=== PATIENT | male | born 1945 | race Caucasian/White ===

== ENCOUNTER 2023-02-06 22:48 | Observation (INO) | payer OTHER, SELFPAY ==
[2023-02-06 22:56] VITALS: BP 161/95; PULSE 84; RESP 16; TEMP 36.7; O2SAT 99; BMI 29.0
--- NOTE | 2023-02-06 23:08 | ED_ITS ---
HPI - General Adult General Chief complaint: Eye Problems Stated complaint: double vision Time Seen by Provider: 02/06/23 23:08 History of Present Illness HPI narrative: CC: Double Vision pt. with double vision around 1600 today. went to eye doctor and was advised to come to ER right away. pt. came 6 hours later cause double vision still persists. denies pain. does wear glasses normally. 77-year-old man presenting to the emergency department with concern of a vertical double vision. We were contacted by [facility] in this emergency department around 5:00 p.m. anticipating his arrival. Apparently went home to rest to see if he might feel better. Presents here at approximately 11:00 p.m. had abrupt onset of double vision sometime after period of yd work around 3:00 p.m. today; 8 hours ago. Does not have a headache. No sensory deficits otherwise. No weaknesses. No discoordination. No loss of vision actually. Diplopia clearly resolves with closure of 1 eye or the other. Was evaluated at Eye Clinic as noted above and determined not to have an eye issue and recommended for emergent evaluation at the emergency department. Over the last couple of months has noted some oddity in the periphery of his vision at times. There has been no trauma. No chest pain or shortness of breath. No palpitations or rapid heartbeats. He arrives concerned that maybe he would potentially have a stroke. Is not taking medications nor have any diagnoses. Normally does were glasses. Related Data Home Medications Medication Instructions Recorded Confirmed No Known Home Medications 02/06/23 02/06/23 Allergies Allergy/AdvReac Type Severity Reaction Status Date / Time No Known Drug Allergies Allergy Verified 02/06/23 22:59 Review of Systems Status of ROS: Reports: 6 or more systems reviewed and unremarkable except as noted in History and below [facility] Medical History (Updated 02/07/23 @ 01:20 by Og Randall MD) No significant past medical history Surgical History (Updated 02/07/23 @ 00:11 by Sascha Morris RN) No significant past surgical history Social History Smoking Status: Never smoker Second hand tobacco smoke exposure: No How often do you have a drink containing alcohol: never How often do you have six or more drinks on one occasion: Never AUDIT-C Alcohol total score: 0 Non-prescribed substance use: denies use Exam Narrative: Exam Narrative: Very pleasant. NAD. GCS of 15 Jhonatan complected. Skin is warm and dry. Speaking fluidly. Understanding without difficulty. Is well-perfused peripherally. Moving all extremities without difficulty, fluidly and with good strength. As noted subjectively without sensory deficits. Cranial nerves 2-12 otherwise look to be intact. Extraocular movements are full and fluid. I do not appreciate dysconjugate gaze. Heart is in a regular rate and rhythm. Lungs are clear. NIH stroke scale of 0. Const: Vital Signs, click to edit/add: Vital Signs - 24 hr 02/06/23 22:56 02/06/23 23:31 Temperature 98.1 F Pulse Rate [Right Pulse Oximeter] 84 Respiratory Rate 16 Blood Pressure [Ri ght Upper Arm] 161/95 H Pulse Oximetry 99 98 Oxygen Delivery Me thod Room Air Documenting provider has reviewed patient's vital signs: yes Course Vital Signs Vital signs: Initial Vital Signs Temperature 98.1 F 02/06/23 22:56 Temperature Source Temporal Artery Scan 02/06/23 22:56 Pulse Rate 84 02/06/23 22:56 Respiratory Rate 16 02/06/23 22:56 Blood Pressure 161/95 H 02/06/23 22:56 Blood Pressure Mean 117 H 02/06/23 22:56 Blood Pressure Position Sitting 02/06/23 22:56 Pulse Oximetry 99 02/06/23 22:56 Oxygen Delivery Method Room Air 02/06/23 22:56 Vital Signs Temperature 98.1 F 02/06/23 22:56 Pulse Rate 84 02/06/23 22:56 Respiratory Rate 16 02/06/23 22:56 Blood Pressure 161/95 H 02/06/23 22:56 Pulse Oximetry 99 02/06/23 22:56 Oxygen Delivery Method Room Air 02/06/23 22:56 Temperature 98.1 F 02/06/23 22:56 Pulse Rate 84 02/06/23 22:56 Respiratory Rate 16 02/06/23 22:56 Blood Pressure 161/95 H 02/06/23 22:56 Pulse Oximetry 98 02/06/23 23:31 Oxygen Delivery Method Room Air 02/06/23 22:56 Medical Decision Making MDM Narrative Medical decision making narrative: Persistent diplopia and further in the setting of normal eye exam per optometry/ophthalmology is concerning. No significant a history of headaches. No demonstrated dysrhythmia. Activated stroke protocols upon arrival. Giving L normal saline. Little after 12:00 a.m. spoke with Stroke Neuro. Given duration and limited/focal symptoms would not be recommending thrombolytic. Are watching for images. EKG reviewed by me shows normal sinus rhythm rate of 74. Without ischemic changes. CT head and neck with angio is unremarkable for acute ischemia or large vessel issue. Diffuse cortical atrophy is noted. No evidence to suggest acute involvement at this time of the cerebellum or brainstem. I discussed these images and care recommendation with Stroke Neuro. Is given full-dose aspirin. Recommended also for hospitalization in case this propagates further and to facilitate further investigation with MRI. I have reviewed all these findings with Mr. Gandhi. Our only intervention at this point has been hydration and now receiving aspirin. He does report improvement in the diplopia. Discussed with overnight hospitalist who is accepting for admission. Lab Data Lab results reviewed: Yes I reviewed the patient's lab results Labs: Lab Results 02/06/23 02/06/23 Range/Units 23:00 23:53 WBC 8.09 (4.50-11.00) K/uL RBC 4.99 (4.30-5.90) m/uL Hgb 16.5 (13.5-17.5) gm/dL Hct 49.6 (37.0-53.0) % MCV 99 (80-100) fL MCH 33 (26-34) pg MCHC 33 (32-36) gm/dL RDW Coeff of Jose 12.4 (11.5-15.5) % Plt Count 148 (140-440) K/uL Neut % (Auto) 60.2 (42.0-72.0) % Lymph % (Auto) 30.5 (20-44) % [place] % (Auto) 7.5 (0.0-11.0) % Eos % (Auto) 1.4 (0.0-7.0) % Baso % (Auto) 0.2 (0.0-3.0) % Neut # (Auto) 4.86 (1.7-7.0) K/uL Lymph # (Auto) 2.47 (0.90-2.90) K/uL [place] # (Auto) 0.60 (0.00-0.90) K/UL Eos # (Auto) 0.11 (0.00-0.50) K/uL Baso # (Auto) 0.02 (0.00-0.30) K/uL Abs Immat Gran (auto) 0.02 (0.00-0.30) K/uL Imm/Tot Granulo (auto) 0.2 % INR 1.09 (0.91-1.10) APTT 28 (23-33) Seconds D-Dimer Quant (PE/DVT) 0.45 (0.00-0.50) ug/ml Sodium 136 (135-149) mmol/L Potassium 4.2 (3.6-5.1) mmol/L Chloride 105 (96-114) mmol/L Carbon Dioxide 26 (20-32) mmol/L Anion Gap 5 L (7-15) mEq/L BUN 19 (7-30) mg/dL Creatinine 1.1 (0.5-1.5) mg/dL Estimated Creat Clear 62.55 Estimated GFR 69 ml/min Glucose 125 H (60-115) mg/dL Calcium 8.9 (8.4-10.6) mg/dL Magnesium 2.3 (1.5-2.6) mg/dL Troponin I < 0.01 L (0.01-0.04) ng/mL NT-Pro-B Natriuret Pep 65 pg/mL POC Creatinine 1.2 (0.6-1.3) mg/dl ECG Data Attestation: I personally reviewed and interpreted this ECG as follows: (Normal sinus rhythm. Rate of 74. No ischemic changes) Critical Care Time Critical Care Time Total Critical Care Time in Minutes: 60 Discharge Plan Discharge Clinical Impression: Diplopia Patient Disposition: Admitted As Observation Condition: Improved
[2023-02-06 23:31] VITALS: O2SAT 98
--- NOTE | 2023-02-06 23:31 | CRLHL7_ITS ---
For Patients: As a result of the Century Cures Act, medical imaging exams and procedure reports are released immediately into your electronic medical record. You may view this report before your referring provider. If you have questions, please contact your health care provider. DATE: 02/07/2023 CLINICAL HISTORY: Patient with diplopia. TECHNIQUE: Standard helical CT image acquisition through the intracranial circulation following intravenous administration of contrast material with bolus tracking. 2D and 3D MIP images for post-processing were performed and interpreted on an independent workstation and 3D images were permanently archived. COMPARISON: CT same day. FINDINGS: There is no cerebral aneurysm or large vessel occlusion. The right internal carotid artery is normal. The right middle cerebral artery and its branches are normal. The right anterior cerebral artery and its branches are normal. The left internal carotid artery is normal. The left middle cerebral artery and its branches are normal. The left anterior cerebral artery and its branches are normal. The anterior communicating artery is well visualized and appears normal. The right vertebral artery and PICA are normal. The left vertebral artery and PICA are normal. The left vertebral artery is dominant. The basilar artery is patent and appears normal. The right posterior cerebral artery is normal. The left posterior cerebral artery is normal. The visualized venous structures are patent. IMPRESSION: Normal CT angiogram of the head without intracranial aneurysm or other neurovascular abnormality. Please note that all CT scans at this facility use dose modulation, iterative reconstruction, and/or weight-based dosing when appropriate to reduce radiation dose to as low as reasonably achievable. Dictated by Yvonne Fitzgerald MD @ 02/07/2023 8:59:38 AM (Electronically Signed)
--- NOTE | 2023-02-06 23:31 | CRLHL7_ITS ---
For Patients: As a result of the Cures Act, medical imaging exams and procedure reports are released immediately into your electronic medical record. You may view this report before your referring provider. If you have questions, please contact your health care provider. INDICATION: Diplopia, vertical since 1600hrs TECHNIQUE: CT Head without i.v. contrast. Coronal and sagittal reformats were obtained. COMPARISON: None FINDINGS: CSF space: Unremarkable for age. Brain: No evidence of mass, acute infarction or hemorrhage is seen. No mass-effect or midline shift is seen. Mild diffuse cortical atrophy is noted. There is an arachnoid cyst anterior to the left temporal pole measuring 4 x 2.2 cm. Calvarium: The visualized paranasal sinuses are well aerated. The mastoid air cells are clear. The visualized orbits are grossly unremarkable. The calvarium is unremarkable in appearance with no fractures identified. IMPRESSION: 1. No evidence of acute infarction, intracranial hemorrhage, or mass-effect seen. Dictated by Tommie Hayes MD @ 02/07/2023 12:37:04 AM Please note that all CT scans at this facility use dose modulation, iterative reconstruction, and/or weight-based dosing when appropriate to reduce radiation dose to as low as reasonably achievable. Dictated by: Tommie Hayes MD @ 02/07/2023 00:37:21 (Electronically Signed)
--- NOTE | 2023-02-06 23:31 | CRLHL7_ITS ---
For Patients: As a result of the Century Cures Act, medical imaging exams and procedure reports are released immediately into your electronic medical record. You may view this report before your referring provider. If you have questions, please contact your health care provider. DATE: 02/07/2023 CLINICAL HISTORY: Patient with diplopia. TECHNIQUE: Standard helical CT image acquisition of the neck up to the skull base after bolus intravenous contrast enhancement. 2D and 3D MIP images for post-processing were performed and interpreted on an independent workstation and 3D images were permanently archived. COMPARISON: CT same day. FINDINGS: The origins of the great vessels from the aortic arch are patent. The origin of the right vertebral artery is patent. The origin of the left vertebral artery is patent. The common carotid arteries are patent. There is no stenosis at the origin of the right internal carotid artery. There is no stenosis at the origin of the left internal carotid artery. The rest of the cervical segments of the internal carotid arteries are patent up to the skull base. The left vertebral artery is dominant. The cervical segments of the vertebral arteries are patent up to the skull base. The visualized lung apices are unremarkable. The thyroid gland is unremarkable. The soft tissues of the neck are unremarkable. There are degenerative changes in the cervical spine. IMPRESSION: Normal CT angiogram of the neck. Please note that all CT scans at this facility use dose modulation, iterative reconstruction, and/or weight-based dosing when appropriate to reduce radiation dose to as low as reasonably achievable. Dictated by Yvonne Fitzgerald MD @ 02/07/2023 8:55:50 AM (Electronically Signed)
[2023-02-06 23:48] LABS: Basophils Absolute Auto 0.02 K/uL (0.00-0.30); Basophils Percent Auto 0.2 % (0.0-3.0); Eosinophils Absolute Auto 0.11 K/uL (0.00-0.50); Eosinophils Percent Auto 1.4 % (0.0-7.0); Hematocrit 49.6 % (37.0-53.0); Hemoglobin* 16.5 gm/dL (13.5-17.5); Immature Granulocytes Abs Auto 0.02 K/uL (0.00-0.30); Immature Granulocytes Pct Auto 0.2 %; Lymphocytes Absolute Auto 2.47 K/uL (0.90-2.90); Lymphocytes Percent Auto 30.5 % (20-44); Mean Corpuscular HGB Conc 33 gm/dL (32-36); Mean Corpuscular Hemoglobin 33 pg (26-34); Mean Corpuscular Volume 99 fL (80-100); Monocytes Percent Auto 7.5 % (0.0-11.0); Neutrophils Absolute Auto 4.86 K/uL (1.7-7.0); Neutrophils Percent Auto 60.2 % (42.0-72.0); Platelet Count* 148 K/uL (140-440); RDW Coefficient of Variation % 12.4 % (11.5-15.5); Red Blood Count 4.99 m/uL (4.30-5.90); White Blood Count* 8.09 K/uL (4.50-11.00)
[2023-02-06] MEDS: 0.9 % SODIUM CHLORIDE 1000 ml 1,000 ML IV (23:50)
[2023-02-06 23:54] LABS: Creatinine, Point-of-Care* 1.2 mg/dl (0.6-1.3)
[2023-02-06 23:55] LABS: Slide Review Reflex No
[2023-02-07] VITALS (7 sets, daily range): BP systolic 135–176; BP diastolic 74–99; PULSE 69–84; RESP 16–18; TEMP 36.4–36.8; O2SAT 94–98; BMI 33.9
[2023-02-07 00:04] LABS: Chloride* 105 mmol/L (96-114); Potassium* 4.2 mmol/L (3.6-5.1); Sodium* 136 mmol/L (135-149)
[2023-02-07 00:06] LABS: Creatinine* 1.1 mg/dL (0.5-1.5); Est. Creatinine Clearance* 62.55; Estimated Glomerular Filt Rate 69 ml/min
[2023-02-07 00:07] LABS: Anion Gap 5 mEq/L (7-15); Blood Urea Nitrogen* 19 mg/dL (7-30); Calcium* 8.9 mg/dL (8.4-10.6); Carbon Dioxide* 26 mmol/L (20-32); Glucose* 125 mg/dL (60-115); Magnesium* 2.3 mg/dL (1.5-2.6)
[2023-02-07 00:14] LABS: INR 1.09 (0.91-1.10); Partial Thromboplastin Time* 28 Seconds (23-33); Prothrombin Time 14.8 Seconds
[2023-02-07 00:17] LABS: D Dimer Quantitative* 0.45 ug/ml (0.00-0.50)
[2023-02-07 00:18] LABS: NT Pro B Type NatriureticPept* 65 pg/mL
[2023-02-07 00:20] LABS: Troponin I* < 0.01 ng/mL (0.01-0.04)
[2023-02-07] MEDS: ASPIRIN 81 MG TAB.CHEW 324 MG PO (01:13)
--- NOTE | 2023-02-07 03:22 | PM.IMPN1 ---
Progress Note: A&P Assessment and plan (1) Diplopia: Status: Acute Plan [facility] Hospitalist eHospitalist was contacted with request of consultation for patient presenting with diplopia and concern for stroke History of present illness: The patient is a 77-year-old male with no significant past medical history and who does not take any medications who developed sudden onset double vision yesterday. This involved both eyes. He went to the eye clinic where eye exam was normal and the pump and blower operator was more concerned about neurological process. He was told to go to the ER right away but the patient came 6 hours later with persistent double vision. He denied any eye pain, photophobia, headaches, facial numbness or pain, difficulty swallowing, focal numbness or weakening, speech difficulty, dizziness or issues with gait. He has had no history of TIA or strokes in the past. He denies any history of hypertension or diabetes. In the emergency room CT head did not show any acute changes.. Pre Assembly Wirer CT head and neck with angio was unremarkable for acute ischemia or large vessel disease. Case was discussed with stroke neurology and MRI was recommended. He was given full dose aspirin. When I saw the patient on video he was quite comfortable and pleasant. He was still having double vision; it was not worsening and he had no other neurological symptoms. Home Medications: see EMR Pertinent Medical History: Per HPI Pertinent Social History: Noncontributory Exam (performed via interactive video with assistance of bedside nurse. Could not auscultate because the Tyto device did not connect relied on nurses findings): Afebrile blood pressure 156/93 pulse 69 respirations 16 O2 sat 95% on room air General: alert, cooperative, no acute distress HEENT: oral mucosa pink and moist without erythema. Pupils equal reactive to light. Bilaterally symmetrical. No photophobia Lungs: clear to auscultation bilaterally without crackle or wheeze CV: regular rate and rhythm without loud murmur rub or gallop Abd: denies tenderness and does not exhibit signs of pain with palpation done by bedside nurse Ext: no pitting edema noted Skin: no rashes, bruises or lesions appreciated on gross visualization of exposed skin Neuro:[alert, oriented x 3. facial muscles grossly intact, moves all extremities without any significant focal deficit appreciated by nurse Pertinent labs and imaging Unremarkable CBC and CMP. Glucose 125 EKG shows normal sinus rhythm CT head and CT angiogram head and neck as discussed Assessment and Plan: The patient presents with diplopia with concern for ophthalmoplegia due to possible TIA/CVA. Per ophthalmology exam there was no ocular abnormality. The patient came outside the window for any thrombolytics. CT head does not show any acute findings. He is admitted for observation and MRI in a.m. -Admit to observation status -Continue aspirin. Permissive hypertension unless systolic blood pressure more than 220 and diastolic blood pressure more than 120 -Get lipid panel and HbA1c in the morning -Initiate statin -Follow-up with neurology after MRI report Thank you for including [facility] in the patients care. This service is available for further assistance as requested by your care team by calling [phone]. Subjective Date Seen: 02/07/23 Exam Const: Vital Signs, click to edit/add: Vital Signs - 24 hr 02/06/23 22:56 02/06/23 23:31 02/07/23 01:34 Temperature 98.1 F 98.1 F Pulse Rate [Pulse Oximeter] Pulse Rate [Right Pulse Oximeter] 84 84 Respiratory Rate 16 16 Blood Pressure [Le ft Arm] Blood Pressure [Ri ght Upper Arm] 161/95 H 135/74 Pulse Oximetry 99 98 98 Oxygen Delivery Me thod Room Air Room Air 02/07/23 01:40 02/07/23 02:02 Temperature 97.8 F Pulse Rate [Pulse Oximeter] 69 Pulse Rate [Right Pulse Oximeter] Respiratory Rate 16 16 Blood Pressure [Le ft Arm] 156/93 H Blood Pressure [Ri ght Upper Arm] Pulse Oximetry 95 95 Oxygen Delivery Me thod Room Air Room Air Labs Labs: Laboratory Results - last 24 hr 02/06/23 02/06/23 23:00 23:53 WBC 8.09 RBC 4.99 Hgb 16.5 Hct 49.6 MCV 99 MCH 33 MCHC 33 RDW Coeff of Jose 12.4 Plt Count 148 Neut % (Auto) 60.2 Lymph % (Auto) 30.5 [place] % (Auto) 7.5 Eos % (Auto) 1.4 Baso % (Auto) 0.2 Neut # (Auto) 4.86 Lymph # (Auto) 2.47 [place] # (Auto) 0.60 Eos # (Auto) 0.11 Baso # (Auto) 0.02 Abs Immat Gran (auto) 0.02 Imm/Tot Granulo (auto) 0.2 INR 1.09 APTT 28 D-Dimer Quant (PE/DVT) 0.45 Sodium 136 Potassium 4.2 Chloride 105 Carbon Dioxide 26 Anion Gap 5 L BUN 19 Creatinine 1.1 Estimated Creat Clear 62.55 Estimated GFR 69 Glucose 125 H Calcium 8.9 Magnesium 2.3 Troponin I < 0.01 L NT-Pro-B Natriuret Pep 65 POC Creatinine 1.2
--- NOTE | 2023-02-07 03:23 | CRLHL7_ITS ---
For Patients: As a result of the Century Cures Act, medical imaging exams and procedure reports are released immediately into your electronic medical record. You may view this report before your referring provider. If you have questions, please contact your health care provider. Indication: Diplopia. Ophthalmoplegia. Technique: Multiplanar, multisequence MRI of the brain was performed without intravenous contrast. Comparison: CT head 02/07/2023. Findings: Mild thinning of the corpus callosum. The pituitary gland ankles appear intact. Mild to moderate degenerative change visualized upper cervical spine. There is no restricted diffusion. No intracranial hemorrhage. The ventricles are proportionate to the cerebral sulci. The 4th ventricle appears midline. The basal cisterns appear patent. There is a left middle cranial fossa arachnoid cyst measuring up to 2.1 x 4.5 cm (TR x AP). Mild mass effect upon the adjacent anterior temporal lobe without parenchymal edema. Mild parenchymal volume loss. Scattered T2 FLAIR hyperintense foci within the subcortical and periventricular white matter, favored to represent chronic ischemic microvascular disease. There is no intracranial mass or midline shift identified. Both globes are preserved. Impression: 1. No acute/subacute infarct. 2. Mild chronic ischemic microvascular disease. 3. Left middle cranial fossa arachnoid cyst. Dictated by Adarsh Hearn MD @ 02/07/2023 2:02:15 PM (Electronically Signed)
[2023-02-07 06:43] LABS: Cholesterol* 228 mg/dL (90-199)
[2023-02-07 06:44] LABS: HDL Cholesterol* 70 mg/dL (>=40); LDL Cholesterol Calculated 142 mg/dL (<100); Triglycerides* 81 mg/dL (40-149)
--- NOTE | 2023-02-07 06:48 | PC.NURSE ---
pt to floor at 0140. Indep. Very pleasant and cooperative. Pt continues to have double vision, pt states he only has double vision when both eyes are open. If he covers one eye the double vision goes away and he can see clearly. Pt has BLE edema, left extremity more edematous than right, pt states that is his baseline.
[2023-02-07 06:58] LABS: Hemoglobin A1C* 5.67 % (0-5.6)
[2023-02-07] MEDS: ATORVASTATIN 10 MG TABLET 40 MG PO (08:57)
[2023-02-07] MEDS: ASPIRIN 81 MG TAB.CHEW PO (08:57)
--- NOTE | 2023-02-07 09:27 | P.IMHP_ITS ---
Hospitalist- H&P: HPI History of Present Illness Date Seen: 02/07/23 Chief complaint: double vision Narrative: Brennen Gandhi is a 77 year old male wtih no significant past medical history presenting for evaluation of diploplia. Yesterday the patient developed sudden diploplia and blurry vision. He denied headache, slurred speech, facial droop, dysarthria, extremity weakness. He was seen in his clinic and recommended to come to ED but he went home and rested for about 6 hours. He returned to ED last night. He underwent CT head/CT Angio with no acute findings. His case was discussed with Neurology. He was started on aspirin and admitted for further evaluation. He continues to have diploplia CT head No evidence of acute infarction, intracranial hemorrhage, or mass-effect seen. Normal CT angiogram of the neck. Review of Systems Status of ROS: Reports: 10 or more systems reviewed and unremarkable except as noted in History and below [facility] Medical History (Updated 02/07/23 @ 10:54 by Matthew Greene MD) No significant past medical history Surgical History (Updated 02/07/23 @ 00:11 by Sascha Morris RN) No significant past surgical history Social History What is your current living situation?: I presently have a place to live Problems where you live: no known problems Problems where you live details: n/a In the past 12 months, utilities in danger of being shut off: no In the past 12 mos, have been you worried that your food would run out before you had money to buy more?: never true In the past 12 mos, the food you bought just didn't last and you didn't have money to buy more?: never true Highest level of school completed/degree received: Master's degree Smoking Status: Never smoker Second hand tobacco smoke exposure: No How often do you have a drink containing alcohol: 4 or more times a week Alcohol type: wine Alcohol type details: 1-2 Glasses of Wine/day [facility] How many standard drinks containing alcohol do you have on a typical day: 1 or 2 How often do you have six or more drinks on one occasion: Never AUDIT-C Alcohol total score: 4 Non-prescribed substance use: denies use How often does anyone, including family, friends and others, physically hurt you : never How often does anyone, including family, friends and others, insult or talk down to you: never How often does anyone, including family, friends and others, threaten you with harm: never How often does anyone, including family, friends and others, scream or curse at you: never service: No Meds Home Medications and Allergies Home Medications Medication Instructions Recorded Confirmed Type No Known Home Medications 02/06/23 02/06/23 History Allergies Allergy/AdvReac Type Severity Reaction Status Date / Time No Known Drug Allergies Allergy Verified 02/06/23 22:59 Exam Narrative: Exam Narrative: Gen: no acute distress HEENT: NCAT EOMI mmm Neck: Supple CV: RRR normal s1 s2 Lungs: CTAB Abd: Soft,nt, nd Neuro: Alert, oriented, no facial droop, no dysarthria; ++diploplia Psych: appropriate affect MSK: age appropriate muscle mass Skin; Warm, dry no rash on face Const: Vital Signs, click to edit/add: Vital Signs - 24 hr 02/06/23 22:56 02/06/23 23:31 02/07/23 01:34 Temperature 98.1 F 98.1 F Pulse Rate [Pulse Oximeter] Pulse Rate [Right Pulse Oximeter] 84 84 Respiratory Rate 16 16 Blood Pressure [Le ft Arm] Blood Pressure [Ri ght Upper Arm] 161/95 H 135/74 Pulse Oximetry 99 98 98 Oxygen Delivery Me thod Room Air Room Air 02/07/23 01:40 02/07/23 02:02 02/07/23 07:30 Temperature 97.8 F Pulse Rate [Pulse Oximeter] 69 Pulse Rate [Right Pulse Oximeter] Respiratory Rate 16 16 16 Blood Pressure [Le ft Arm] 156/93 H Blood Pressure [Ri ght Upper Arm] Pulse Oximetry 95 95 Oxygen Delivery Me thod Room Air Room Air 02/07/23 07:30 Temperature 98 F Pulse Rate [Pulse Oximeter] 82 Pulse Rate [Right Pulse Oximeter] Respiratory Rate 18 Blood Pressure [Le ft Arm] 176/99 H Blood Pressure [Ri ght Upper Arm] Pulse Oximetry 94 Oxygen Delivery Me thod Room Air Hospitalist - H&P: Result Labs Labs: Short CBC 02/06/23 Range/Units 23:00 WBC 8.09 (4.50-11.00) K/uL Hgb 16.5 (13.5-17.5) gm/dL Hct 49.6 (37.0-53.0) % Plt Count 148 (140-440) K/uL BMP 02/06/23 23:00 Sodium 136 Potassium 4.2 Chloride 105 Carbon Dioxide 26 BUN 19 Creatinine 1.1 Glucose 125 H Calcium 8.9 Cardiac Enzymes 02/06/23 Range/Units 23:00 Troponin I < 0.01 L (0.01-0.04) ng/mL Assessment and Plan Assessment and plan (1) Diplopia: Problem comment: presenting with acute diploplia and blurry vision; htn sbp in 170s CT/CTA negative 1) R/o acute cva -permissive htn -neuro checks -echo -MRI Brain -asprin -statin -lipid panel and a1c -tele neuro evaluation Status: Acute
[2023-02-07] MEDS: LORazepam 2 MG/ML inj 0.5 MG IVP (12:17)
--- NOTE | 2023-02-07 17:08 | PM.DS1 ---
DS: Providers Provider Date Seen: 02/07/23 Date of admission: 02/07/23 01:35 Primary care physician: Not a Local Provider Admitting Clinician: Og Randall MD Consults: PT and OT Attending Physician on discharge: Tonya Goodrich MD Date of Discharge: 02/07/23 DS: Diagnosis Discharge Diagnosis (1) Diplopia: Status: Acute Problem details: - presented to ED with acute diploplia and blurry vision on 02/07 - CT/CTA of head and neck reassuring in ER - MRI obtained on hospital day 1 without any acute abnormalities - TTE obtained on hospital day 1, also without any acute abnormalities - seen by Dr. Salmeron via tele Neurology, who recommends initiation of statin and baby aspirin daily, outpatient Neuro and PCP follow-up DS: Summary Hospital Course Hospital Course: Pleasant 77 year old male presented to the hospital's acute diplopia. Workup performed as above was reassuring. Tele neurology consulted on patient and recommended statin and daily 81mg aspirin, noting that there is a up to 4% chance that a posterior circulation CVA could be missed on MRI. Dr. Salmeron of tele neurology recommends outpatient neurology follow-up and close PCP follow-up. Patient and agreeable with this plan. Status at Discharge Functional status at discharge: independent ambulation Overall status at discharge: patient is progressing back to baseline Time Spent with Patient Time attestation: Total time spent providing and/or coordinating discharge services: Time spent: Less than 30 minutes Exam Narrative: Exam Narrative: Formal exam deferred at discharge, please see Dr. [facility]'s H&P for exam results from earlier in the day Const: Vital Signs, click to edit/add: Vital Signs - 24 hr 02/06/23 22:56 02/06/23 23:31 02/07/23 01:34 Temperature 98.1 F 98.1 F Pulse Rate Pulse Rate [Pulse Oximeter] Pulse Rate [Right Pulse Oximeter] 84 84 Respiratory Rate 16 16 Blood Pressure [Le ft Arm] Blood Pressure [Ri ght Upper Arm] 161/95 H 135/74 Pulse Oximetry 99 98 98 Oxygen Delivery Me thod Room Air Room Air 02/07/23 01:40 02/07/23 02:02 02/07/23 07:30 Temperature 97.8 F Pulse Rate Pulse Rate [Pulse Oximeter] 69 Pulse Rate [Right Pulse Oximeter] Respiratory Rate 16 16 16 Blood Pressure [Le ft Arm] 156/93 H Blood Pressure [Ri ght Upper Arm] Pulse Oximetry 95 95 Oxygen Delivery Me thod Room Air Room Air 02/07/23 07:30 02/07/23 09:30 02/07/23 11:30 Temperature 98 F 98.2 F Pulse Rate 76 Pulse Rate [Pulse Oximeter] 82 80 Pulse Rate [Right Pulse Oximeter] Respiratory Rate 18 18 Blood Pressure [Le ft Arm] 176/99 H 147/96 H Blood Pressure [Ri ght Upper Arm] Pulse Oximetry 94 94 Oxygen Delivery Me thod Room Air Room Air 02/07/23 16:30 02/07/23 16:30 Temperature 97.6 F Pulse Rate Pulse Rate [Pulse Oximeter] 71 71 Pulse Rate [Right Pulse Oximeter] Respiratory Rate 16 16 Blood Pressure [Le ft Arm] 141/88 H Blood Pressure [Ri ght Upper Arm] Pulse Oximetry 95 Oxygen Delivery Me thod Room Air DS: Data Data Completed and Pending Labs on day of discharge: Labs from last 24 hours 02/07/23 02/06/23 02/06/23 05:51 23:53 23:50 WBC RBC Hgb Hct MCV MCH MCHC RDW Coeff of Jose Plt Count Neut % (Auto) Lymph % (Auto) [place] % (Auto) Eos % (Auto) Baso % (Auto) Neut # (Auto) Lymph # (Auto) [place] # (Auto) Eos # (Auto) Baso # (Auto) Abs Immat Gran (auto) Imm/Tot Granulo (auto) INR APTT D-Dimer Quant (PE/DVT) Sodium Potassium Chloride Carbon Dioxide Anion Gap BUN Creatinine Estimated Creat Clear Estimated GFR Glucose Hemoglobin A1c 5.67 H Calcium Magnesium Troponin I NT-Pro-B Natriuret Pep Triglycerides 81 Cholesterol 228 H LDL Cholesterol, Calc 142 H HDL Cholesterol 70 POC Creatinine 1.2 Pending 02/06/23 23:00 WBC 8.09 RBC 4.99 Hgb 16.5 Hct 49.6 MCV 99 MCH 33 MCHC 33 RDW Coeff of Jose 12.4 Plt Count 148 Neut % (Auto) 60.2 Lymph % (Auto) 30.5 [place] % (Auto) 7.5 Eos % (Auto) 1.4 Baso % (Auto) 0.2 Neut # (Auto) 4.86 Lymph # (Auto) 2.47 [place] # (Auto) 0.60 Eos # (Auto) 0.11 Baso # (Auto) 0.02 Abs Immat Gran (auto) 0.02 Imm/Tot Granulo (auto) 0.2 INR 1.09 APTT 28 D-Dimer Quant (PE/DVT) 0.45 Sodium 136 Potassium 4.2 Chloride 105 Carbon Dioxide 26 Anion Gap 5 L BUN 19 Creatinine 1.1 Estimated Creat Clear 62.55 Estimated GFR 69 Glucose 125 H Hemoglobin A1c Calcium 8.9 Magnesium 2.3 Troponin I < 0.01 L NT-Pro-B Natriuret Pep 65 Triglycerides Cholesterol LDL Cholesterol, Calc HDL Cholesterol POC Creatinine Discharge Plan Discharge Disposition: Home, Self-Care Date of Admission: 02/07/23 01:35 Attending Provider on Discharge: Tonya Goodrich Primary Care Provider: Provider,Not a Local Condition: Improved Anticipated Discharge Date/Time: 02/07/23 16:43 Discharge Medications: New aspirin [Children's Aspirin] 81 mg Tablet,Chewable 81 mg PO DAILY Qty: 30 0RF atorvastatin 10 mg Tablet 40 mg PO DAILY Qty: 30 0RF No Action No Known Home Medications Discharge Orders: Discharge Order (Routine); Ordered 02/07/23 Ordered By: Tonya Goodrich Patient Education: Aspirin (By mouth), Atorvastatin (By mouth), Transient Ischemic Attack (DC) Additional Instructions: Check in with Dr. Packer as a new PCP. New medication (statin) at [facility] - you'll also take an 81mg aspirin daily. He can help guide you with medications and Neurology f/u. You need to return to the ED with any new or worsening symptoms. Activity Level: Activity as Tolerated Activity Detail: No driving until PCP f/u Discharge Diet: Regular Follow Up Appointments: Josiah Packer MD [Staff Physician] - 02/20/23 8:30 am ([facility]) Provider,Not a Local [Primary Care Provider] - Forms: [employer] Info Instructions
--- NOTE | 2023-02-07 17:33 | PC.NURSE ---
Discharge: Patient pleasant and cooperative. Patient vitally stable, lungs clear, BS WNL, IV removed, catheter intact. Patient denies pain. Nueros intact, only diplopia. Patient signed discharge form and belongings sheet. Patient had no further questions regarding discharge. Patient left to home by foot with and belongings at 1730.
== END 2023-02-07 17:30 | disposition home or self-care (01) ==
LOC: ED 02-07 01:22 → MEDSURG 02-07 01:36
PROVIDERS: Internal Medicine; Admitting Provider Family Medicine; Emergency Provider Family Medicine; Visit Provider Family Medicine
DX: H53.2 Diplopia (principal)
CPT/HCPCS: 36415; 70450; 70496; 70498; 70551; 80048; 80061; 82565; 83036; 83735; 83880; 84484; 85025; 85379; 85610; 85730; 93005; 93306; 94761; 96361; 96374; 97116; 97161; 97165; 99199; 99284; 99291; A9270; G0378; J2060; J7030; Q9967

== ENCOUNTER 2023-05-09 10:15 | Outpatient (CLI) | payer OTHER, SELFPAY | END 2023-05-09 10:16 | disposition home or self-care (01) | LOC: NFLDREF 05-10 06:44 | PROVIDERS: PCP Family Medicine; Referring Provider Family Medicine; Visit Provider Family Medicine | DX: E78.5 Hyperlipidemia, unspecified (principal); I63.9 Cerebral infarction, unspecified | CPT/HCPCS: 80061; 84450; 84460 ==

== ENCOUNTER 2023-08-10 11:12 | Outpatient (CLI) | payer OTHER, SELFPAY | END 2023-08-10 11:13 | disposition home or self-care (01) | LOC: NFLDREF 11:13 | PROVIDERS: PCP Family Medicine; Visit Provider Family Medicine | DX: Z01.818 Encounter for other preprocedural examination (principal); I77.2 Rupture of artery | CPT/HCPCS: 80048 ==

== ENCOUNTER 2023-09-01 10:48 | Outpatient (CLI) | payer OTHER, SELFPAY ==
--- NOTE | 2023-09-01 11:00 | CT_ITS ---
Patient: ARNOL BARRETT Facility:?[facility] Patient ID:?[id number] Site Patient ID:?[id number] Site :?[id number] Study:?CT-Chest WITHOUT-09/01/2023 11:17:58 AM Ordering Physician:?DR. MORGAN Final Report: Indication: Possible nodule Technique: Noncontrast CT chest Please note that all CT scans at this facility use dose modulation, iterative reconstruction, and/or weight-based dosing when appropriate to reduce radiation dose to as low as reasonably achievable. Comparison: Chest x-ray 08/10/2023 Findings: Peripherally calcified stone in the gallbladder noted. No biliary obstruction. Visualized thyroid normal. No enlarged lymph nodes. Chronic nondisplaced fracture deformities involving the left-sided ribs. Mild patchy ground-glass densities are present within both lower lobes. No pleural effusion or pulmonary edema. No pneumothorax. Incidental intraosseous hemangioma within T12. No fracture. No pulmonary nodule is present. Bridging osteophyte formation in the thoracic spine noted. Impression: No pulmonary nodule. Faint bilateral lower lobe infiltrates. Cholelithiasis. Please note that all CT scans at this facility use dose modulation, iterative reconstruction, and/or weight-based dosing when appropriate to reduce radiation dose to as low as reasonably achievable. Dictated by Og Horner MD @ 09/01/2023 12:03:03 PM Signed by:?Og Horner MD @09/01/2023 12:03:03 PM (Electronic Signature)
== END 2023-09-01 10:49 | disposition home or self-care (01) ==
LOC: CT 10:49
PROVIDERS: PCP Family Medicine; Visit Provider Family Medicine
DX: R91.1 Solitary pulmonary nodule (principal); K80.20 Calculus of gallbladder without cholecystitis without obstruction
CPT/HCPCS: 71250

== ENCOUNTER 2024-05-21 09:16 | Outpatient (CLI) | payer OTHER, SELFPAY | END 2024-05-21 09:17 | disposition home or self-care (01) | LOC: NFLDREF 05-23 13:00 | PROVIDERS: PCP Family Medicine; Referring Provider Family Medicine; Visit Provider Family Medicine | DX: E78.5 Hyperlipidemia, unspecified (principal); I10 Essential (primary) hypertension | CPT/HCPCS: 80053; 80061 ==